=== PATIENT | female | born 1985 | race American Indian/Alaskan Native ===

== ENCOUNTER 2016-08-05 13:55 | Outpatient (CLI) | payer MEDICAID ==
[2016-08-05 14:41] VITALS: BP 107/60
[2016-08-05] MEDS ORDERED: FIORICET PO PRN (15:15)
[2016-08-05] MEDS ORDERED: FIORICET PO ONE (15:15)
[2016-08-05 15:54] LABS: Bilirubin,Urine NEG (Negative); Blood,Urine NEG (Negative); Ketones,Urine NEG (Negative); Leukocyte Esterase,Urine NEG (Negative); Mucus,Urine 1+ /HPF; Nitrite,Urine NEG (Negative); Protein,Urine <15 mg/dL mg/dL (Negative); Urobilinogen,Urine < 2.0 mg/dL (<2.0)
== END 2016-08-05 16:25 | disposition home or self-care (01) ==
LOC: TRG 13:55
PROVIDERS: ATTEND Obstetrics & Gynecology
DX: O47.03 False labor before 37 completed weeks of gestation, third trimester (principal); Z3A.30 30 weeks gestation of pregnancy
CPT/HCPCS: 59025; 81001

== ENCOUNTER 2016-10-03 16:36 | Outpatient (CLI) | payer MEDICAID ==
[2016-10-03 16:54] VITALS: BP 112/62
== END 2016-10-03 18:35 | disposition home or self-care (01) ==
LOC: TRG 16:36
PROVIDERS: ATTEND Obstetrics & Gynecology
DX: O47.1 False labor at or after 37 completed weeks of gestation (principal); Z3A.39 39 weeks gestation of pregnancy
CPT/HCPCS: 59025